=== PATIENT | male | born 1950 ===

== ENCOUNTER 2016-12-18 17:41 | Emergency (ER) | payer SELFPAY ==
[~2016-12-18] VITALS: Ht 167.6 cm; Wt 63.5 kg
[2016-12-18 18:05] VITALS: BP 152/117
== END 2016-12-19 04:48 | disposition left against medical advice (07) ==
LOC: ER 17:41 → EDBD 17:41 → ER 19:00
DX: M54.9 Dorsalgia, unspecified (principal); R06.02 Shortness of breath; Z53.21 Procedure and treatment not carried out due to patient leaving prior to being seen by health care provider
CPT/HCPCS: 93005